=== PATIENT | female | born 1980 | race Caucasian/White ===

== ENCOUNTER 2021-06-20 14:02 | Emergency (ER) | payer BC, MEDICAID ==
[~2021-06-20] VITALS: Ht 165.1 cm; Wt 87.3 kg
[2021-06-20 14:09] VITALS: BP 160/98
[2021-06-20 14:46] LABS: BASOPHILS % (AUTO) 1 % (0-1); EOSINOPHILS % (AUTO) 1 % (1-7); LYMPHOCYTES % (AUTO) 19 % (22-44); MEAN CORPUSCULAR HEMOGLOBIN 31.6 pg (27.0-34.8); MONOCYTES % (AUTO) 6 % (2-9); NEUTROPHILS % (AUTO) 73 % (42-75); PLATELET COUNT 332 x10^3/uL (130-400); RED BLOOD COUNT 4.66 x10^6/uL (3.82-5.3); RED CELL DISTRIBUTION WIDTH 13.2 % (9.6-15.2)
[2021-06-20 14:57] LABS: ANION GAP 3 mmol/L (5-15); CALCIUM 8.4 mg/dL (8.5-10.1); CHLORIDE 106 mmol/L (98-107); CREATININE 0.75 mg/dL (0.55-1.02)
--- NOTE | 2021-06-20 16:34 | NUR ---
PT DISCHARGED BY HENRI BEAN
== END 2021-06-20 16:56 | disposition home or self-care (01) ==
LOC: ED 16:00
DX: S93.402A Sprain of unspecified ligament of left ankle, initial encounter (principal); W19.XXXA Unspecified fall, initial encounter; Y93.89 Activity, other specified; Y92.89 Other specified places as the place of occurrence of the external cause; Y99.8 Other external cause status
CPT/HCPCS: 36415; 80048; 83880; 85025; 99285